=== PATIENT | male | born 1960 | race Caucasian/White ===

== ENCOUNTER 2016-04-06 09:44 | Emergency (ER) | payer MEDICARE, OTHER ==
[~2016-04-06] VITALS: Ht 177.8 cm; Wt 85.0 kg
[2016-04-06 09:47] VITALS: BP 192/95; PULSE 75; RESP 16; TEMP 98.4; O2SAT 98
[2016-04-06] MEDS ORDERED: QUET1TAB7 PO (09:58)
[2016-04-06] MEDS ORDERED: IPRA17I INH (09:58)
[2016-04-06] MEDS ORDERED: ZOCO10TA PO (09:58)
[2016-04-06] MEDS ORDERED: LOSA50TA PO (09:58)
[2016-04-06] MEDS ORDERED: SERT-129 PO (09:58)
[2016-04-06] MEDS ORDERED: ATEN50TA PO (09:58)
[2016-04-06] MEDS ORDERED: SODIUM CHLORIDE 0.9% FLUSH 5 ML FLUSH IVF PRN (10:00)
[2016-04-06] MEDS ORDERED: ASPIRIN 81 MG CHEW TAB CHEW ONE (10:00)
[2016-04-06] MEDS ORDERED: ONDANSETRON HCL 4 MG/2 ML VIAL IVP ONE (10:00)
[2016-04-06] MEDS ORDERED: ALUMINUM/MAGNESIUM/SIMETH 30 ML CUP PO ONE (10:00)
[2016-04-06] MEDS ORDERED: SODIUM CHLOR 0.9% 1000 ML INJ 1,000 ML IV SCH (10:00)
[2016-04-06] MEDS ORDERED: FAMOTIDINE 20 MG/2 ML VIAL IV PUSH ONE (10:00)
[2016-04-06] MEDS ORDERED: LIDOCAINE VISCOUS 2% SOLN 15 ML UDC PO ONE (10:00)
[2016-04-06] MEDS ORDERED: MORPHINE SULFATE 4 MG/ML INJ IV PUSH ONE (10:00)
--- NOTE | 2016-04-06 10:10 | PD ---
HPI Chief Complaint: Chest Pain Time Seen by Provider: 09:49 Travel History International Travel<30 days: No Contact w/Intl Traveler<30days: No Traveled to known affect area: No History of Present Illness HPI The patient is a 55-year-old male who presents to the emergency Department from assisted living facility for heartburn. The patient states he has a history of heartburn, states he developed burning pain in the lower chest wall, substernal, earlier today. The patient had a glass of milk without any alleviation of his symptoms. The patient does take Tums on a regular basis for continuing reflux. Patient states the pain is burning, nonradiating, but not associated with any shortness of breath. He denies any associated nausea, vomiting, or abdominal pain. The patient does have a history of hypertension and hyperlipidemia, however, quit smoking several years ago. He does continue to smoke marijuana occasionally. The patient is unsure if he has a family history of heart disease, states his parents from "old age ", and his father was in a coma. The patient denies any exertional symptoms. The patient' s symptoms are moderate, earlier was a 10/10, now is a 2/10. PFSH Past Medical History Asthma: Yes High Cholesterol: Yes Developmental Delay: Yes GERD: Yes Hypertension: Yes Past Surgical History Abdominal Surgery: Yes (HERNIA REPAIR) Appendectomy: Yes Social History Alcohol Use: No Tobacco Use: No Substance Use: Yes (STATES "I USED TO SMOKE MARIJUANA.") Allergies-Medications (Allergen,Severity, Reaction): Coded Allergies: No Known Allergies (Unverified , 04/06/16) Reported Meds & Prescriptions Reported Meds & Active Scripts Active Reported Zocor (Simvastatin) 10 Mg Tab 10 Mg PO HS Sertraline (Sertraline HCl) 100 Mg Tab 150 Mg PO DAILY Quetiapine (Quetiapine Fumarate) 25 Mg Tab 25 Mg PO HS Losartan (Losartan Potassium) 50 Mg Tab 50 Mg PO DAILY Atrovent HFA 12.9 GM Inh (Ipratropium [place]) 17 Mcg/Act Aer 2 Puff INH TID Atenolol 50 Mg Tab 50 Mg PO DAILY Review of Systems Except as stated in HPI: all other systems reviewed are Neg General / Constitutional: No: Fever HENT: No: Lightheadedness Cardiovascular: Positive: Chest Pain or Discomfort, No: Diaphoresis, Dyspnea on exertion Respiratory: No: Shortness of Breath Gastrointestinal: Positive: Indigestion, No: Nausea, Vomiting, Diarrhea, Abdominal Pain Musculoskeletal: No: Weakness Neurologic: No: Dizziness Physical Exam Narrative GENERAL: Awake, alert, pleasant 55-year-old male who appears his stated age and is in no acute respiratory distress. Stuttering speech pattern, however, I am able to understand most of his speech. SKIN: Warm and dry. HEAD: Atraumatic. Normocephalic. EYES: Pupils equal and round. No scleral icterus. No injection or drainage. ENT: No nasal bleeding or discharge. Mucous membranes pink and moist. NECK: Trachea midline. No JVD. CARDIOVASCULAR: Regular rate and rhythm. No murmur appreciated. RESPIRATORY: No accessory muscle use. Clear to auscultation. Breath sounds equal bilaterally. GASTROINTESTINAL: Abdomen soft, non-tender, nondistended. No rebound tenderness. Negative Joseph's. MUSCULOSKELETAL: No obvious deformities. No clubbing. No cyanosis. No edema. NEUROLOGICAL: Awake and alert. No obvious cranial nerve deficits. Motor grossly within normal limits. Normal speech. PSYCHIATRIC: Appropriate mood and affect; insight and judgment normal. Data Data Last Documented VS Vital Signs Date Time Temp Pulse Resp B/P Pulse Ox O2 Delivery O2 Flow Rate FiO2 04/06/16 12:00 60 18 170/87 98 Room Air 04/06/16 09:47 98.4 Orders Electrocardiogram (04/06/16 ) Complete Blood Count With Diff (04/06/16 10:00) Comprehensive Metabolic Panel (04/06/16 10:00) Lipase (04/06/16 10:00) Iv Access Insert/Monitor (04/06/16 10:00) Ecg Monitoring (04/06/16 10:00) Oximetry (04/06/16 10:00) Morphine Inj (Morphine Inj) (04/06/16 10:00) Ondansetron Inj (Zofran Inj) (04/06/16 10:00) Sodium Chlor 0.9% 1000 Ml Inj (Ns 1000 M (04/06/16 10:00) Sodium Chloride 0.9% Flush (Ns Flush) (04/06/16 10:00) Chest, Single Ap (04/06/16 10:00) Famotidine Inj (Pepcid Inj) (04/06/16 10:00) Al-Mag Hy-Si 40-40-4 Mg/Ml Liq (Mag-Al P (04/06/16 10:00) Lidocaine 2% Viscous (Xylocaine 2% Visco (04/06/16 10:00) Troponin I (04/06/16 10:00) Creatine Kinase (Cpk) (04/06/16 10:00) Aspirin Chew (Aspirin Chew) (04/06/16 10:00) Troponin I (04/06/16 13:00) Labs Laboratory Tests Test 04/06/16 04/06/16 10:00 13:00 White Blood Count 10.3 TH/MM3 Red Blood Count 5.04 MIL/MM3 Hemoglobin 14.7 GM/DL Hematocrit 42.6 % Mean Corpuscular Volume 84.5 FL Mean Corpuscular Hemoglobin 29.1 PG Mean Corpuscular Hemoglobin 34.5 % Concent Red Cell Distribution Width 13.8 % Platelet Count 256 TH/MM3 Mean Platelet Volume 7.8 FL Neutrophils (%) (Auto) 70.0 % Lymphocytes (%) (Auto) 14.7 % Monocytes (%) (Auto) 8.2 % Eosinophils (%) (Auto) 6.5 % Basophils (%) (Auto) 0.6 % Neutrophils # (Auto) 7.2 TH/MM3 Lymphocytes # (Auto) 1.5 TH/MM3 Monocytes # (Auto) 0.8 TH/MM3 Eosinophils # (Auto) 0.7 TH/MM3 Basophils # (Auto) 0.1 TH/MM3 CBC Comment DIFF FINAL Differential Comment Sodium Level 139 MEQ/L Potassium Level 4.0 MEQ/L Chloride Level 104 MEQ/L Carbon Dioxide Level 28.0 MEQ/L Anion Gap 7 MEQ/L Blood Urea Nitrogen 10 MG/DL Creatinine 0.90 MG/DL Estimat Glomerular Filtration 87 ML/MIN Rate Random Glucose 126 MG/DL Calcium Level 9.4 MG/DL Total Bilirubin 0.3 MG/DL Aspartate Amino Transf 17 U/L (AST/SGOT) Alanine Aminotransferase 35 U/L (ALT/SGPT) Alkaline Phosphatase 102 U/L Total Creatine Kinase 97 U/L Troponin I LESS THAN 0.02 LESS THAN 0.02 NG/ML NG/ML Total Protein 7.3 GM/DL Albumin 3.7 GM/DL Lipase 144 U/L MDM Medical Decision Making Medical Screen Exam Complete: Yes Emergency Medical Condition: Yes Medical Record Reviewed: Yes Interpretation(s) EKG reveals normal sinus rhythm with a rate of 68. Nonspecific T wave changes. Last Impressions Chest X-Ray 04/06/16 1000 Signed Impressions: Service Date/Time: Wednesday, April 06, 2016 10:12 - CONCLUSION: No acute disease. Compensated cardiomegaly. Salvador Santana MD Laboratory Tests Test 04/06/16 10:00 White Blood Count 10.3 TH/MM3 Red Blood Count 5.04 MIL/MM3 Hemoglobin 14.7 GM/DL Hematocrit 42.6 % Mean Corpuscular Volume 84.5 FL Mean Corpuscular Hemoglobin 29.1 PG Mean Corpuscular Hemoglobin 34.5 % Concent Red Cell Distribution Width 13.8 % Platelet Count 256 TH/MM3 Mean Platelet Volume 7.8 FL Neutrophils (%) (Auto) 70.0 % Lymphocytes (%) (Auto) 14.7 % Monocytes (%) (Auto) 8.2 % Eosinophils (%) (Auto) 6.5 % Basophils (%) (Auto) 0.6 % Neutrophils # (Auto) 7.2 TH/MM3 Lymphocytes # (Auto) 1.5 TH/MM3 Monocytes # (Auto) 0.8 TH/MM3 Eosinophils # (Auto) 0.7 TH/MM3 Basophils # (Auto) 0.1 TH/MM3 CBC Comment DIFF FINAL Differential Comment Sodium Level 139 MEQ/L Potassium Level 4.0 MEQ/L Chloride Level 104 MEQ/L Carbon Dioxide Level 28.0 MEQ/L Anion Gap 7 MEQ/L Blood Urea Nitrogen 10 MG/DL Creatinine 0.90 MG/DL Estimat Glomerular Filtration 87 ML/MIN Rate Random Glucose 126 MG/DL Calcium Level 9.4 MG/DL Total Bilirubin 0.3 MG/DL Aspartate Amino Transf 17 U/L (AST/SGOT) Alanine Aminotransferase 35 U/L (ALT/SGPT) Alkaline Phosphatase 102 U/L Total Creatine Kinase 97 U/L Troponin I LESS THAN 0.02 NG/ML Total Protein 7.3 GM/DL Albumin 3.7 GM/DL Lipase 144 U/L Vital Signs Date Time Temp Pulse Resp B/P Pulse Ox O2 Delivery O2 Flow Rate FiO2 04/06/16 11:07 18 98 Room Air 04/06/16 09:47 98.4 75 16 192/95 98 Second troponin less than 0.0 to Differential Diagnosis Differential diagnosis includes GERD, esophageal spasm, indigestion, gastritis, acute coronary syndrome, STEMI, peptic ulcer disease, biliary colic. Narrative Course IV was established, labs were drawn and sent, and the patient was placed on cardiac telemetry monitoring and continuous pulse oximetry monitoring. EKG was ordered and interpreted. The patient was administered 2 baby aspirin, morphine , Zofran, and GI cocktail. Chest x-ray was obtained. Chest x-ray was negative. The patient's initial troponin was negative. The patient was reevaluated at 10:55 AM, his pain has significantly improved, he still complained of "heartburn" in the lower aspect. The patient has no shortness of breath, nausea, vomiting, or diaphoresis. Patient's pain is atypical of coronary pain, more consistent with probable reflux and/or gastritis. However, patient does have risk factors, therefore, second troponin was ordered for 1300. The patient's second troponin was less than 0.02. The patient's symptoms had resolved and he was requesting coffee. The patient has atypical chest pain for cardiac origin, most likely is related to GERD. Patient discharged back to the assisted living facility and is advised to return if symptoms worsen or progress. Diagnosis Primary Impression: Atypical chest pain Additional Impression: Acid reflux Qualified Code: K21.9 - Gastroesophageal reflux disease, esophagitis presence not specified Additional Instructions: Return if symptoms worsen or progress. Follow-up with her primary physician. Disposition: 01 DISCHARGE HOME (discharge back to assisted living facility.) Condition: Stable Felipe Mojica MD Apr 06, 2016 10:10
[2016-04-06 10:14] LABS: AUTOMATED NEUTROPHIL # 7.2 TH/MM3 (1.8-7.7); BASOPHIL # 0.1 TH/MM3 (0-0.2); BASOPHIL % 0.6 % (0.0-2.0); EOSINOPHIL # 0.7 TH/MM3 (0-0.4); EOSINOPHIL % 6.5 % (0.0-4.0); HEMATOCRIT 42.6 % (39.0-51.0); HEMO FLAGS DIFF FINAL; LYMPH % 14.7 % (9.0-44.0); LYMPHOCYTE # 1.5 TH/MM3 (1.0-4.8); MEAN CELL VOLUME 84.5 FL (80.0-100.0); MEAN CORPUSCULAR HEMOGLOBIN 29.1 PG (27.0-34.0); MEAN CORPUSCULAR HGB CONC 34.5 % (32.0-36.0); MONO % 8.2 % (0.0-8.0); PLATELET COUNT 256 TH/MM3 (150-450); RED BLOOD COUNT 5.04 MIL/MM3 (4.50-5.90); RED CELL DISTRIBUTION WIDTH 13.8 % (11.6-17.2); WHITE BLOOD COUNT 10.3 TH/MM3 (4.0-11.0)
--- NOTE | 2016-04-06 10:32 | RADRPT ---
EXAM DATE/TIME: 04/06/2016 10:12 [facility] COMPARISON: No previous studies available for comparison. INDICATIONS : Chest Pain. MEDICAL HISTORY : Asthma. SURGICAL HISTORY : Hernia Repair. ENCOUNTER: Initial ACUITY: 1 day PAIN SCORE: 2/10 LOCATION: Bilateral chest FINDINGS: A single view of the chest demonstrates the lungs to be symmetrically aerated without evidence of mas s, infiltrate or effusion. The heart size is mildly enlarged.. Osseous structures are intact. CONCLUSION: No acute disease. Compensated cardiomegaly. Salvador Santana MD on April 06, 2016 at 10:30 Board Certified Radiologist. This report was verified electronically.
[2016-04-06 10:36] LABS: ALT (GPT) 35 U/L (12-78); ANION GAP 7 MEQ/L (5-15); AST (GOT) 17 U/L (15-37); BLOOD UREA NITROGEN 10 MG/DL (7-18); CHLORIDE 104 MEQ/L (98-107); GLOMERULAR FILTRATION RATE 87 ML/MIN (>89); SODIUM (NA) 139 MEQ/L (136-145)
[2016-04-06 10:41] LABS: ALKALINE PHOSPHATASE 102 U/L (45-117); TOTAL BILIRUBIN ADULT 0.3 MG/DL (0.2-1.0)
[2016-04-06 10:47] LABS: CREATINE KINASE 97 U/L (39-308)
[2016-04-06 11:00] VITALS: BP 184/96; PULSE 64; RESP 18; O2SAT 98
[2016-04-06 11:07] VITALS: RESP 18; O2SAT 98
[2016-04-06 12:00] VITALS: BP 170/87; PULSE 60; RESP 18; O2SAT 98
--- NOTE | 2016-04-06 12:49 | EKG ---
Date Performed: 04/06/2016 Time Performed: 09:50:51 PTAGE: 55 years EKG: Sinus rhythm BORDERLINE LEFT AXIS DEVIATION MODERATE VOLTAGE CRITERIA FOR LVH, CONSIDER NORMAL VARIANT NONSPECIFI C T-WAVE ABNORMALITY BORDERLINE ECG NO PREVIOUS TRACING DOCTOR: Rayray Baumann Interpretating Date/Time 04/06/2016 12:48:33
[2016-04-06 14:00] VITALS: BP 167/78; PULSE 64; RESP 16; O2SAT 98
== END 2016-04-06 14:48 | disposition home or self-care (01) ==
LOC: NEPE 09:44
DX: K21.9 Gastro-esophageal reflux disease without esophagitis (principal); J45.909 Unspecified asthma, uncomplicated; I10 Essential (primary) hypertension; E78.00 Pure hypercholesterolemia, unspecified
CPT/HCPCS: 71010; 80053; 82550; 83690; 84484; 85025; 93005; 96361; 96374; 96375; 99285; J2270; J2405; J7030